=== PATIENT | female | born 1985 | race Caucasian/White ===

== ENCOUNTER 2016-09-30 08:49 | Day surgery (SDC) | payer OTHER ==
[~2016-09-30] VITALS: Ht 154.9 cm; Wt 76.2 kg
[2016-09-30] VITALS (13 sets, daily range): BP systolic 93–122; BP diastolic 53–84; PULSE 84–106; RESP 15–22; Ht 154.9 cm; Wt 76.2 kg
[2016-09-30] MEDS ORDERED: SOD CHLORIDE 0.9% 1,000 ML IV SCH (09:30)
[2016-09-30] MEDS ORDERED: CEFAZOLIN 2 GM/50 ML (PMX) 50 ML IVPB ONE (09:30)
[2016-09-30] MEDS ORDERED: MIDAZOLAM 1 MG/ML 2 ML INJ ONE (10:29)
[2016-09-30] MEDS ORDERED: PROPOFOL 20 ML ONE (10:29)
[2016-09-30] MEDS ORDERED: ROCURONIUM 50 MG INJ ONE (10:29)
[2016-09-30] MEDS ORDERED: FENTAnyl 50 MCG/ML VIAL ONE ×2 (10:29)
[2016-09-30] MEDS ORDERED: CEFAZOLIN 1 GM INJ ONE (10:29)
[2016-09-30] MEDS ORDERED: BUPIVACAINE 0.25% (MPF) 30 ML INJ ONE (10:46)
[2016-09-30] MEDS ORDERED: NEOSTIGMINE 3 MG/3 ML SYRINGE ONE (11:23)
[2016-09-30] MEDS ORDERED: METOCLOPRAMIDE 10 MG INJ ONE (11:23)
[2016-09-30] MEDS ORDERED: GLYCOPYRROLATE 0.4 MG INJ ONE (11:23)
[2016-09-30] MEDS ORDERED: ONDANSETRON 4 MG INJ ONE (11:23)
[2016-09-30] MEDS ORDERED: DEXAMETHASONE 4 MG/ML 1 ML INJ ONE (11:23)
[2016-09-30] MEDS ORDERED: GLUCAGON 1 MG INJ ONE (11:23)
[2016-09-30] MEDS ORDERED: KETOROLAC 30 MG INJ ONE (11:24)
[2016-09-30] MEDS ORDERED: MEPERIDINE 25 MG INJ IV PRN (11:30)
[2016-09-30] MEDS ORDERED: ONDANSETRON 4 MG INJ IV PRN (11:30)
[2016-09-30] MEDS ORDERED: HYDROmorphONE (0.2 MG/ML) 10ML SYG IV PRN ×3 (11:30)
[2016-09-30] MEDS ORDERED: DIPHENHYDRAMINE 50 MG INJ IV PRN (11:30)
[2016-09-30] MEDS ORDERED: morphine (1 MG/ML) 10ML SYRINGE IV PRN ×3 (11:30)
[2016-09-30] MEDS ORDERED: HYDROCODONE/APAP (5/325) TAB PO ONE (12:00)
--- NOTE | 2016-09-30 13:22 | OPR ---
DATE OF OPERATION: 09/30/2016 INDICATION: This is a 30-year-old female with symptomatic gallstones. She requests surgical excisi on of her gallbladder. Risks, alternatives, benefits, and personnel were discussed with the patient . Patient expressed understanding and consents to the operation. PREOPERATIVE DIAGNOSIS: Symptomatic gallstones. POSTOPERATIVE DIAGNOSIS: Symptomatic gallstones. OPERATION: Laparoscopic cholecystectomy. SURGEON: Isabela Aguero MD SPECIMENS: Gallbladder. COMPLICATIONS: None. ANESTHESIA: General. PROCEDURE: The patient was taken to the OR and prepped and draped in usual sterile fashion. Surgic al timeout was performed. IV antibiotics were given. Infraumbilical incision was made with a 15 bl carissa. Dissection cautery was carried down to the fascia which is divided with curved Ingram scissors, 0 Vicryl U-stitch was placed in the fascia. [place] trocar was introduced. Pneumoperitoneum established. [id number] mm optical trocar right upper quadrant, right upper flank 5 mm optic al trocars are placed under direct visualization. Upon initial inspection, the gallbladder had some adhesions that were taken down bluntly. The cystic duct was identified. The critical view was est ablished. The cystic duct and cystic artery were divided using a 35 mm [place] vascular load staple r. The gallbladder was taken off the gallbladder bed. There was good hemostasis. Gallbladder was retrieved using EndoCatch bag. There was minimal spillage and suction irrigation was used. Ports w ere removed under direct visualization, 0-Vicryl U-stitch was tied down. Skin was closed using skin corey. Local anesthesia was injected. Dry dressings were applied. Dictated By: ISABELA AGUERO MD SB/IVY Conf#: [id number] DID#: [id number]
== END 2016-09-30 13:50 | disposition home or self-care (01) ==
LOC: SDS 08:49
PROVIDERS: ATTEND Surgery
DX: K81.1 Chronic cholecystitis (principal)
CPT/HCPCS: 47562; 84703; 88304; J0690; J1100; J1170; J1885; J2250; J2405; J2710; J2765; J3010; Z7512; Z7610; J1610